=== PATIENT | male | born 1965 | race Caucasian/White ===

== ENCOUNTER 2017-07-27 06:30 | Day surgery (SDC) | payer BC ==
--- NOTE | 2017-07-26 14:45 | HP ---
HISTORY AND PHYSICAL DATE OF SERVICE: 07/27/2017 Victoriano Blake is a 52-year-old patient seen with progressive left shoulder pain. After treatment options were discussed, patient elected to proceed with left shoulder arthroscopy, consent regarding the procedure was obtained, clearance was provided by Dr. Baldwin. Cardiac clearance was provided by Dr. Fraga. PAST MEDICAL HISTORY: Cardiovascular disease, hypertension, hyperlipidemia. PAST SURGICAL HISTORY: Noncontributory. DAILY MEDICATIONS: 1. Buspirone. 2. Flonase. 3. Losartan. 4. Simvastatin. 5. Ibuprofen. ALLERGIES: None reported. SOCIAL HISTORY: Patient denies current tobacco use. PHYSICAL EVALUATION: Evaluation of the left shoulder flexion is 150 degrees, abduction is 135 degrees, external rotation is 45 degrees with weakness, tenderness on the anterolateral acromion and rotator cuff insertion. Impingement positive 80 degrees, distal neurovascular exam intact. Left shoulder radiographs reveal a type 2 anterior acromion, acromioclavicular joint osteoarthritis and cystic changes of the greater tuberosity. An MRI of the left shoulder revealed a rotator cuff tear. IMPRESSION: Left shoulder impingement with rotator cuff tear. PLAN: Left shoulder arthroscopy with subacromial decompression, probable arthroscopic rotator cuff repair. Possible Heather procedure and debridement. MMODL / IJN: [id number] /
[~2017-07-27 06:30] MED LIST: DEXAMETHASONE SOD PHOSPHATE 10 MG/ML 1 ML VIAL IV ONE; HYDROmorphone 0.5 MG/0.5 ML SYRINGE IVP PRN; LACTATED RINGERS 1,000 ML IV SCH; LIDOCAINE 1% 20 ML VIAL (10MG/ML) FOR IV START INTRADERMA PRN; ONDANSETRON 4 MG/2 ML VIAL IVP ONE; SCOPOLAMINE 1.5MG/72HR PATCH TRANSDERM ONE; ceFAZolin 2 GM in SODIUM CHLORIDE 0.9% 100 ML IVPB ONE
[2017-07-27 07:12] LABS: Glucose,Whole Blood 116 mg/dL (75-99)
[2017-07-27] MEDS ORDERED: MIDAZOLAM 2 MG/2 ML VIAL IVP ONE (08:00)
[2017-07-27] MEDS ORDERED: fentaNYL (PF) 50 MCG/ML 2 ML AMP IV ONE (08:00)
[2017-07-27] MEDS ORDERED: GLYCOPYRROLATE 0.2 MG/ML 2 ML VIAL ONE (08:12)
[2017-07-27] MEDS ORDERED: ROPIVACAINE 5 MG/ML 30 ML VIAL ONE (08:12)
[2017-07-27] MEDS ORDERED: NEOSTIGMINE 1 MG/ML 10 ML VIAL ONE (08:12)
[2017-07-27] MEDS ORDERED: LIDOCAINE 2%-EPI 1:100,000 20 ML VIAL ONE (08:12)
[2017-07-27] MEDS ORDERED: ROCURONIUM BROMIDE 10 MG/ML 10 ML VIAL IV ONE (08:12)
[2017-07-27] MEDS ORDERED: SUCCINYLCHOLINE CHLORIDE VIAL 200 MG/10 ML VIAL IV ONE (08:12)
[2017-07-27] MEDS ORDERED: PROPOFOL 10 MG/ML 20 ML VIAL IV ONE (08:12)
[2017-07-27] MEDS ORDERED: LIDOCAINE 1% INJ 10MG/ML (20 ML MDV) ONE (08:12)
[2017-07-27] MEDS ORDERED: LACTATED RINGERS 1,000 ML IV ONE (09:36)
[2017-07-27 10:00] VITALS: TEMP 97
--- NOTE | 2017-07-27 10:04 | P.OP ---
Date of Procedure: 07/27/17 Preoperative Diagnosis: Left shoulder impingement Postoperative Diagnosis: 1. Left shoulder rotator cuff tear 2. Left shoulder impingement 3. Left shoulder acromioclavicular joint osteoarthritis 4. Left shoulder partial long head biceps tendon tear 5. Left shoulder superficial anterior labral tear Procedure(s) Performed: 1. Left shoulder arthroscopic rotator cuff repair 2. Left shoulder arthroscopic subacromial decompression 3. Left shoulder arthroscopic Heather procedure 4. Left shoulder arthroscopic biceps tenotomy 5. Left shoulder arthroscopic debridement labral tear Implants: 1-4.5 mm anchor Anesthesia: GETA, regional (Scalene block) Surgeon: Miguel Novak Physics Department Chair #1: Miguelito Toussaint Estimated Blood Loss (ml): 10 Pathology: none sent Condition: stable Disposition: PACU Indications for Procedure: 52-year-old patient seen with progressive left shoulder pain. After treatment options were discussed, he elected to proceed with arthroscopy. Operative Findings: See description of procedure Description of Procedure: Patient underwent a shoulder block by department of anesthesia. The patient was then taken to the operative suite. The patient underwent a general anesthetic by the department of anesthesia. The patient was placed into a lateral position and secured. There was appropriate padding of the bony prominence. Left shoulder was then prepped and draped in normal sterile orthopedic fashion. We placed the extremity in 10 pounds of longitudinal traction. A posterior incision was now made for a posterior working portal site. The trocar and cannula were inserted into the glenohumeral joint. Arthroscopy was initiated. Spinal needle was now inserted anteriorly, to ascertain the anterior working portal site. An incision was now made in that area, a trocar was inserted followed by a probe. There was grade 1 chondromalacia of the humeral head and grade 1/2 chondromalacia of the glenoid. There was superficial tearing of the anterior labrum present. The superior, posterior and inferior labrum were found to be intact. There was partial tearing long head biceps tendon greater than 50%. There were no loose bodies present. I performed an arthroscopic biceps tenotomy. I debrided that superficial anterior labral tear down to stable tissue. The residual labrum was probed and found to be stable. At this point instruments removed from the glenohumeral joint. Utilizing the posterior working portal site, the trocar and cannula were inserted into the subacromial space. Arthroscopy initiated. I made an incision 2 fingerbreadths lateral to the acromion. I introduced my trocar followed by my ArthroCare ablator. I now began ablating thick subacromial bursal tissue, which exposed the undersurface of the anterior acromion. This was diminished subacromial space. There was a very prominent anterior acromion. A motorized bur was introduced and a subacromial decompression was performed. I also excised some osteophytes off the inferior aspect of the distal clavicle. The AC joint was visualized and noted to be fairly arthritic. Our motorized bur was introduced in the anterior portal site and a Heather procedure was performed without difficulty, decompressing the AC joint nicely. I turned my attention to the rotator cuff. There was obvious superficial partial tearing along the distal supraspinatus area. I debrided this with a motorized shaver. I probed the area and found an obvious through and through perforation. I now debrided the edges getting down to stable rotator cuff tendon tissue. There was a 1-1.5 cm tear. I abraded the footprint with a motorized bur. I introduced 2 everted mattress sutures through good bites of rotator cuff tendon. I now repaired the tendon back to the footprint utilizing 1-4.5 peek anchor. This compressed the tendon along the footprint very nicely. The residual suture limbs were clipped. The repair was probed and found to be stable. I injected 1 mL Allogen intra-articular. Demarco HANNAH assisted with the procedure. The patient was awakened, transferred to a bed, and taken to recovery in stable condition.
--- NOTE | 2017-07-27 10:49 | P.ONQ ---
Anesthesiology Proc Note - PNB - Peripheral Nerve Block Performed Left Interscalene Single Time Out Performed: Yes Procedure Start Time: 07:57 Procedure Stop Time: 08:02 Indication: Acute Post-Operative Pain, Requested by physician Sedation Type: Sedate with meaningful contact maintained Preparation: Sterile Prep Position: Supine Needle Size: 50mm (2") Needle Gauge: 21 Technique: Ultrasound Injectate: 0.5% Ropivacaine (see comment for volume) (ropi.5% 15cc plus lido2% 15cc) Blood Aspirated: No Pain Paresthesia on Injection Noted: No Resistance on Injection: Normal Events: Uneventful and Well Tolerated
[2017-07-27 12:00] VITALS: BP 116/70; PULSE 70; RESP 18
== END 2017-07-27 12:49 | disposition home or self-care (01) ==
LOC: OR 06:30
PROVIDERS: ATTEND Orthopaedic Surgery
DX: M75.102 Unspecified rotator cuff tear or rupture of left shoulder, not specified as traumatic (principal); M75.42 Impingement syndrome of left shoulder; M19.012 Primary osteoarthritis, left shoulder; S46.112A Strain of muscle, fascia and tendon of long head of biceps, left arm, initial encounter; S43.402A Unspecified sprain of left shoulder joint, initial encounter; X58.XXXA Exposure to other specified factors, initial encounter; M94.212 Chondromalacia, left shoulder; M25.712 Osteophyte, left shoulder; I25.10 Atherosclerotic heart disease of native coronary artery without angina pectoris; I10 Essential (primary) hypertension; E78.5 Hyperlipidemia, unspecified; Z95.1 Presence of aortocoronary bypass graft; Z79.1 Long term (current) use of non-steroidal anti-inflammatories (NSAID); Z79.51 Long term (current) use of inhaled steroids; Z79.899 Other long term (current) drug therapy; Z79.84 Long term (current) use of oral hypoglycemic drugs; Z79.82 Long term (current) use of aspirin; Z79.891 Long term (current) use of opiate analgesic
CPT/HCPCS: 29826; 29827; 29824; 64415; C1894; C1713; C1765; J2250; J0330; J1100; J2710; J0690; J2405; J2001; J3010; J2795; J2704

== ENCOUNTER → 2021-12-02 | Outpatient (CLI) | payer BC ==
--- NOTE | 2021-12-03 02:15 | MR ---
EXAMINATION TYPE: MR shoulder RT wo con DATE OF EXAM: 12/02/2021 COMPARISON: None HISTORY: Right shoulder pain, decreased ROM x 4 mos, no trauma. Multiplanar multiecho imaging of the right shoulder without contrast. There is moderate shoulder joint effusion. The biceps tendon is intact. There is fluid around the bic eps tendon. The subscapularis tendon is intact. The glenoid anabel appear intact. There is a large rotator cuff tear with retraction of the supraspinatus tendon. There is no evidence of a fracture. The AC joint shows hypertrophic spurring and subacromial impingement. IMPRESSION: Large full-thickness tear of the rotator cuff with retraction. Large shoulder joint effusion and subd eltoid effusion. Subacromial impingement with spurring at the AC joint.
== END | disposition home or self-care (01) ==
LOC: RADMRIMAIN 19:02
PROVIDERS: ATTEND Orthopaedic Surgery
DX: M75.111 Incomplete rotator cuff tear or rupture of right shoulder, not specified as traumatic (principal); M25.411 Effusion, right shoulder; M25.811 Other specified joint disorders, right shoulder; M25.711 Osteophyte, right shoulder

== ENCOUNTER 2022-01-13 07:39 | Day surgery (SDC) | payer BC ==
[2022-01-11 12:03] VITALS: BMI 29.2
--- NOTE | 2022-01-12 22:57 | HP ---
HISTORY AND PHYSICAL DATE OF SURGERY: 01/13/2022 Victoriano Blake is a 56-year-old gentleman seen with progressive right shoulder pain. We discussed options for treatment. He elected to proceed with right shoulder arthroscopy. Consent was obtained. PAST MEDICAL HISTORY: Hypertension, hyperlipidemia. PAST SURGICAL HISTORY: Left shoulder arthroscopy. DAILY MEDICATIONS: Losartan, simvastatin, hydrocodone, Naprosyn. ALLERGIES: NONE. SOCIAL HISTORY: He denies tobacco use. PHYSICAL EVALUATION OF THE RIGHT SHOULDER: Flexion is 100 degrees. Abduction is 90 degrees. External rotation is 40 degrees with significant weakness and pain. Tenderness along the anterolateral acromion and rotator cuff insertion site. Impingement sign is positive at 70. Drop-arm sign is positive. Distal neurovascular exam is intact. Right shoulder radiographs revealed a type 2 acromion. Right shoulder MRI revealed a large retracted rotator cuff tear along with impingement and acromioclavicular joint osteoarthritis. IMPRESSION: 1. Right shoulder impingement with rotator cuff tear. 2. Right shoulder acromioclavicular joint osteoarthritis. PLAN: Right shoulder arthroscopy with subacromial decompression, arthroscopic rotator cuff repair, Heather procedure and debridement. MMODL / IJN: [id number] /
[2022-01-13 08:14] VITALS: RESP 16
[2022-01-13 08:18] LABS: Glucose,Whole Blood 111 mg/dL (75-99)
[2022-01-13] MEDS ORDERED: MIDAZOLAM 2 MG/2 ML VIAL IVP ONE (08:37)
[2022-01-13] MEDS ORDERED: LACTATED RINGERS 1,000 ML IV ONE ×2 (08:40→10:49)
[2022-01-13] MEDS ORDERED: ONDANSETRON 4 MG/2 ML VIAL IVP ONE (08:49)
[2022-01-13] MEDS ORDERED: DEXAMETHASONE SOD PHOSPHATE 4 MG/ML 1 ML VIAL IV ONE (08:49)
[2022-01-13] MEDS ORDERED: LIDOCAINE 1% (10MG/ML) FOR IV START INTRADERMA PRN (08:49)
--- NOTE | 2022-01-13 08:49 | P.ANPRN ---
Procedure Note - Anesthesia - Nerve Block Performed Right Interscalene Single Time Out Performed: Yes ([id number]) Date of Procedure: 01/13/22 Procedure Start Time: 08:35 Procedure Stop Time: 08:40 Location of Patient: PreOp Indication: Acute Post-Operative Pain, Requested by Surgeon Sedation Type: Sedate with meaningful contact maintained Preparation: Sterile Prep Position: Sitting Catheter: None Needle Types: Pajunk Needle Gauge: 21 Ultrasound used to visualize needle placement: Yes Ultrasound used to observe medication spread: Yes Injectate: 0.5% Ropivacaine (see comment for volume) (22 mL of block solution containing- 15 mL of 0.5% preservative-free ropivacaine mixed with 4 MG of dexamethasone, and 6 mL of preservative free normal saline) Blood Aspirated: No Pain Paresthesia on Injection Noted: No Resistance on Injection: Normal Image Stored and Saved: Yes Events: Uneventful and Well Tolerated
[2022-01-13] MEDS ORDERED: LACTATED RINGERS 1,000 ML IV SCH (09:00)
[2022-01-13] MEDS ORDERED: DEXAMETHASONE SOD PHOSPHATE 4 MG/ML 1 ML VIAL ONE (09:39)
[2022-01-13] MEDS ORDERED: ROPIVACAINE 5 MG/ML 30 ML VIAL ONE (09:39)
[2022-01-13] MEDS ORDERED: LIDOCAINE 1% INJ 10MG/ML (20 ML MDV) ONE (09:39)
[2022-01-13] MEDS ORDERED: SUCCINYLCHOLINE CHLORIDE 100 MG/5 ML SYR IV ONE (09:39)
[2022-01-13] MEDS ORDERED: ePHEDrine 50 MG/ML 1 ML VIAL ONE (09:39)
[2022-01-13] MEDS ORDERED: SODIUM CHLORIDE 0.9% (PF) 10 ML VIAL ONE (09:39)
[2022-01-13] MEDS ORDERED: MIDAZOLAM 2 MG/2 ML VIAL ONE (09:39)
[2022-01-13] MEDS ORDERED: fentaNYL (PF) 50 MCG/ML 2 ML AMP ONE (09:39)
[2022-01-13] MEDS ORDERED: PROPOFOL 10 MG/ML 20 ML VIAL IV ONE (09:39)
[2022-01-13 11:42] VITALS: TEMP 96.9
--- NOTE | 2022-01-13 11:42 | P.OP ---
Date of Procedure: 01/13/22 Preoperative Diagnosis: Right shoulder impingement Postoperative Diagnosis: 1. Right shoulder massive retracted rotator cuff tendon tear 2. Right shoulder impingement 3. Right shoulder partial long head biceps tendon tear Procedure(s) Performed: 1. Right shoulder arthroscopic rotator cuff repair 2. Right shoulder arthroscopic subacromial decompression 3. Right shoulder arthroscopic biceps tenotomy Implants: 24.75 Arthrex swivel lock anchors Anesthesia: GETA, regional (Interscalene block) Surgeon: Miguel Novak Data Security Consultant #1: Miguelito Toussaint Estimated Blood Loss (ml): 7 Pathology: none sent Condition: stable Disposition: PACU Indications for Procedure: 56-year-old gentleman seen with progressive right shoulder pain. We discussed options for treatment. He elected to proceed with arthroscopy. Operative Findings: see description of procedure Description of Procedure: Patient underwent an interscalene block by department of anesthesia. The patient was then taken to the operative suite. The patient underwent a general anesthetic by the department of anesthesia. The patient was placed into a lateral position and secured. There was appropriate padding of the bony prominence. Right shoulder was then prepped and draped in normal sterile orthopedic fashion. We placed the extremity in 10 pounds of longitudinal traction. A posterior incision was now made for a posterior working portal site. The trocar and cannula were inserted into the glenohumeral joint. Arthroscopy was initiated. Spinal needle was now inserted anteriorly, to ascertain the anterior working portal site. An incision was now made in that area, a trocar was inserted followed by a probe. There was significant partial tearing long head biceps tendon. There were grade 1 chondromalacia changes diffusely about the glenohumeral joint with no significant osteochondral tears present. There was an obvious massive rotator cuff tendon tear could visualize. I performed a arthroscopic biceps tenotomy. The labrum was again probed and found to be stable. Instruments were now removed from glenohumeral joint. Utilizing the posterior working portal site, the trocar and cannula were inserted into the subacromial space. Arthroscopy initiated. I made an incision 2 fingerbreadths lateral to the acromion. I introduced my trocar followed by my ArthroCare ablator. I now began ablating thick subacromial bursal tissue, which exposed the undersurface of the anterior acromion. There was diminished subacromial space. There was some mild prominence anteriorly the acromion. I p erformed a light subacromial decompression. I evaluated the before meals joint appeared to have some mild osteoarthritis but not enough to warrant a Heather procedure. I now turned my attention to the massive retracted rotator cuff tendon tear. The tendon tear was retracted all the way to the glenoid and measured approximately 5 cm across. The central portion was not mobile. The anterior portion of the tendon was deteriorated completely with no obvious residual anterior supraspinatus tendon left. The posterior portion of the tendon was somewhat mobile over the posterior footprint area. I now began meticulously performing releases anteriorly, in the middle and posteriorly to try to mobilize that tendon. I mobilized the posterior portion a little bit more but the anterior portion of the tendon was absent and the central portion was very scarred down and was not moving at all. I abraded the footprint with a motorized bur. I decided to at least try to repair the posterior portion of the tendon to give him some coverage. I passed with the assistance of Demarco HANNAH 2 everted mattress sutures with good bites of rotator cuff tendon posteriorly. I now punched hole in the footprint area for insertion of an anchor posteriorly. I now passed all 4 limbs of suture through the eyelet of a 4.75 Arthrex swivel lock anchor. I placed the eyelet into the pre-punch hole and held it there while Demarco HANNAH tensioned all suture limbs and deployed anchor with good fixation noted. It appeared to have good coverage along the posterior aspect of the tendon with good insertion on the footprint. I now passed 2 [id number] sutures centrally did provide some central coverage with the assistance of Demarco HANNAH. I now passed 2 additional everted mattress sutures along the posterior central portion of the tendon through good bites of rotator cuff tendon. I now punched the hole again in the footprint area for insertion of an anchor. All 4 limbs of suture were again passed through another eyelet of a 4.75 swivel lock anchor. I placed the eyelet into the pre-punch hole and held it there while Demarco HANNAH tensioned all 4 suture limbs and deployed the anchor with good fixation noted. That tenden did not approximated over the footprint area completely as it was under quite a bit attention. Residual suture limbs were clipped. Again I had no tissue anteriorly to a pproximate the tendon. At this point I decided this was as much as could be done with this massive retracted tendon tear. Instruments now removed from the portal sites. All portal sites were approximated with nylon suture. Sterile dressings were applied followed by a shoulder immobilizer. Miguelito HANNAH assisted in this complex case. The patient was awakened, transferred to a bed, and taken to recovery in stable condition.
[2022-01-13 13:16] VITALS: BP 137/65; PULSE 57
[2022-01-14] MEDS ORDERED: HYDROmorphone 0.5 MG/0.5 ML SYRINGE IVP PRN (07:00)
== END 2022-01-13 13:14 | disposition home or self-care (01) ==
LOC: OR 07:39
PROVIDERS: ATTEND Orthopaedic Surgery
DX: M75.101 Unspecified rotator cuff tear or rupture of right shoulder, not specified as traumatic (principal); M25.811 Other specified joint disorders, right shoulder; S46.111A Strain of muscle, fascia and tendon of long head of biceps, right arm, initial encounter; X58.XXXA Exposure to other specified factors, initial encounter; M94.211 Chondromalacia, right shoulder; M19.011 Primary osteoarthritis, right shoulder; G89.18 Other acute postprocedural pain; I10 Essential (primary) hypertension; E78.5 Hyperlipidemia, unspecified; Z79.899 Other long term (current) drug therapy; Z95.1 Presence of aortocoronary bypass graft; I25.10 Atherosclerotic heart disease of native coronary artery without angina pectoris; E11.9 Type 2 diabetes mellitus without complications; F32.9 Major depressive disorder, single episode, unspecified; Z79.84 Long term (current) use of oral hypoglycemic drugs; Z79.82 Long term (current) use of aspirin
CPT/HCPCS: 29827; 29828; 29826; 64415; 76942; C1713; J2250; J1100; J0690; J2405; J2001; J3010; J2795; J0330; J2704

== ENCOUNTER → 2022-10-28 | Outpatient (CLI) | payer BC ==
--- NOTE | 2022-10-29 07:12 | MR ---
EXAMINATION TYPE: MR shoulder RT wo con DATE OF EXAM: 10/28/2022 COMPARISON: Prior right shoulder MRI December 02, 2021 HISTORY: History of surgical repair one year ago with recurrent pain and diminished range of motion TECHNIQUE: Multiplanar, multisequence imaging of the right shoulder is performed without contrast. FINDINGS: Rotator Cuff: Recurrent full-thickness retracted tear of the distal supraspinatus tendon is identifie d retracted to level of the distal clavicle having similar appearance to prior MRI. Infraspinatus ten don remains intact. Mild to moderate fat replaced atrophy of the supraspinatus muscle has progressed in the interval from prior study. Acromioclavicular Joint: Moderate narrowing remains present. Glenohumeral Joint: Redemonstration of high positioned humeral head with large joint effusion extendi ng superiorly. Labrum: The superior labrum is blunted and suspected torn similar to prior. Biceps Tendon: The long head of biceps is not definitively located in normal location. Biceps anchor is torn. Bone marrow signal: Artifact from interval surgical change involving screws at level of the humeral h ead. Other: No additional significant abnormality is appreciated. IMPRESSION: Recurrent full-thickness retracted tear of the supraspinatus tendon. I suspect tear and d islocation of long head of biceps tendon also. Correlate clinically.
== END | disposition home or self-care (01) ==
LOC: RADMRIMAIN 16:16
PROVIDERS: ATTEND Orthopaedic Surgery
DX: M75.111 Incomplete rotator cuff tear or rupture of right shoulder, not specified as traumatic (principal)